=== PATIENT | female | born 1985 | race Caucasian/White ===

== ENCOUNTER 2020-10-22 12:07 | Outpatient (CLI) | payer BC ==
[2020-10-22 12:57] LABS: Estimated GFR-MDRD - POC Greater than 90
[2020-10-22] MEDS ORDERED: Iopamidol-370 76% 500 ML 1 ML ONE (14:54)
== END 2020-10-22 12:08 | disposition home or self-care (01) ==
LOC: CT 12:07
PROVIDERS: ATTEND Internal Medicine Hematology & Oncology
DX: C85.20 Mediastinal (thymic) large B-cell lymphoma, unspecified site (principal); R91.8 Other nonspecific abnormal finding of lung field; R59.0 Localized enlarged lymph nodes
CPT/HCPCS: 70491; 71260; 82565; Q9967

== ENCOUNTER 2025-02-04 10:13 | Outpatient (CLI) | payer BC | END 2025-02-04 10:14 | disposition home or self-care (01) | LOC: RAD 10:13 | PROVIDERS: ATTEND Internal Medicine | DX: R06.00 Dyspnea, unspecified (principal) | CPT/HCPCS: 71046 ==